=== PATIENT | female | born 1975 | race Caucasian/White ===

== ENCOUNTER 2018-05-24 10:53 | Emergency (ER) | payer OTHER ==
[2018-05-24 10:59] VITALS: BP 126/84
--- NOTE | 2018-05-24 11:06 | EDPHY ---
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 The dog is current on vaccinations including rabies. Patient is up-to-date on her tetanus. Patient reports that all a sudden she started to see blood drip from her face and she applied direct pressure. Denies LOC/head injury/neck pain/dizziness/nausea/vomiting/amnesia. Modifying Factors: Direct pressure Comment: ROS: A comprehensive 10 system review of systems is otherwise negative aside from elements mentioned in the history of present illness. MEDICAL/SURGICAL/SOCIAL HISTORY: Medical history: hemochromatosis. Does not take any regular medications. Surgical history: Denies Social history: Works at a veterinary office. Heavy smoker CONSTITUTIONAL: Well-developed, well-nourished adult white female, awake and alert, no obvious distress HEENT: normocephalic, left upper lip vertical laceration going through the vermilion border but not through and through; measuring approximately 1.5 cm x 0.5 cm; PERRL, EOMI. no globe entrapment, no raccoon eyes. no [place] signs.Tympanic membranes clear. No tympanic membrane rupture. Nares patent; no septal hematoma. Oropharynx clear, no exudate and moist pink mucosa. No malocclusion. no dental trauma. Airway patent. No lymphadenopathy. Cardiovascular: Normal S1/S2, regular rate, regular rhythm, without murmur rub or gallop. PULMONARY/CHEST: Symmetrical and nontender. Clear to auscultation bilaterally. Good air movement. No accessory muscle usage. ABDOMEN: Soft, nondistended, nontender, no rebound, no guarding, no peritoneal signs, no masses or organomegaly. No CVAT. EXTREMITIES: 2/2 pulses, strength 5/5, no deformities, no clubbing, no cyanosis or edema. NEUROLOGICAL: no focal neuro deficits. GCS 15. SKIN: Warm and dry, no erythema. no rash. Good capillary refill. Source: Patient Exam Limitations: No limitations - Personal History LMP (Females 10-55): 8-14 Days Ago Current Tetanus/Diphtheria Vaccine: Yes - Medical/Surgical History Hx Asthma: No Hx Chronic Respiratory Disease: No Hx Diabetes: No Hx Cardiac Disease: No Hx Renal Disease: No Hx Cirrhosis: No Hx Alcoholism: No Other PMH: hemachromatosis - Social History Smoking Status: Heavy smoker Constitutional: Initial Vital Signs Temperature (C) 36.8 C 05/24/18 10:56 Heart Rate 79 05/24/18 10:56 Respiratory Rate 18 05/24/18 10:56 Blood Pressure 126/84 H 05/24/18 10:56 O2 Sat (%) 98 05/24/18 10:56 O2 Delivery Mode Room Air Allergies/Adverse Reactions: No Known Allergies Allergy (Unverified 05/24/18 10:59) Home Medications: Medication Instructions Recorded Amoxicillin/Clavulanate Pot 875 mg PO BID #14 tab 05/24/18 [Augmentin 875 MG TAB (*)] oxyCODONE/APAP 5/325 [Percocet 1 - 2 tab PO Q4H PRN #10 tab 05/24/18 5/325 (*)] Medical Decision Making Procedures: Procedure: [place] border laceration Repair. Verbal consent was obtained from the patient. The 1.5 cm x 0.5 cm, complex, vertical laceration of the left upper lip, measured by the extent of the laceration on the skin was anesthetized in the usual fashion using 4 mL of 1% lidocaine without epinephrine. The wound extends past the peewee border. The wound was cleaned per protocol, draped and explored to its base with a gloved finger. The peewee border was closed with good approximation of the edges. The wound was loosely approximated with #2, 5-0 Vicryl simple interrupted pattern. The procedure was performed by myself. ED Course/Re-evaluation: Signs reviewed and stable upon arrival. Tetanus booster up-to-date Rabies prophylaxis not indicated Given ibuprofen Local anesthesia provided and copiously irrigated Due to vermilion border involvement decision made to place 2 loosely approximated absorbable sutures for better cosmesis Given Augmentin and prescription for same Patient is to return in 2-3 days for wound check and to determine if further suturing is indicated. Referral to Plastic surgery No signs of neurovascular compromise/tenting of skin/compartment syndrome/ extremities and joints examined above and below area of concern and are neurovascularly intact. This patient was seen under the supervision of my secondary supervising physician. I evaluated care for this patient attending. Differential Diagnosis: Differential diagnosis includes but is not limited to lip laceration, vermilion border injury, dental trauma, dog bite, puncture wound. - Data Points Medications Given: Discontinued Medications Amoxicillin/Clavulanate Potassium (Augmentin 875mg) 875 mg PO EDNOW ONE PRN Reason: Protocol Stop: 05/24/18 11:26 Last Admin: 05/24/18 11:49 Dose: 875 mg Ibuprofen (Motrin) 600 mg PO EDNOW ONE Stop: 05/24/18 11:16 Last Admin: 05/24/18 11:18 Dose: 600 mg Departure - Departure Disposition: Home, Routine, Self-Care Clinical Impression: Dog bite of vermilion of upper lip Qualifiers: Encounter type: initial encounter Qualified Code(s): S01.551A - Open bite of lip, initial encounter Condition: Good Instructions: Animal Bite (ED), Care For Your Absorbable Stitches (ED), Laceration Without Closure (ED), Facial Laceration (ED) Additional Instructions: Keep the area dry for 2-3 days. After 48 hours, you may wash the site daily with mild soap and water; then pat dry. Apply topical antibiotic ointment and keep covered with sterile dressing until fully healed. Do not soak in a bathtub or go swimming until sutures are removed. Take Tylenol 650 mg every 4 hours and/or Ibuprofen 600 mg every 8 hours with food as needed for pain. Use Percocet every 6 hours as needed for severe/break through pain. Do not use Tylenol and Percocet concomitantly. Take antibiotic as directed. Do not skip a dose. Follow-up with plastic surgery as indicated for scar revision/further evaluation. Wound Care Follow-Up: Wound evaluation and determine if further suturing is indicated [2-3 ] days. There is a charge for this evaluation in the Emergency Department. Referrals: Brian Martinez MD [Medical Doctor] - As per Instructions Prescriptions: Amoxicillin/Clavulanate Pot [Augmentin 875 MG TAB (*)] 875 mg PO BID #14 tab oxyCODONE/APAP 5/325 [Percocet 5/325 (*)] 1 - 2 tab PO Q4H PRN #10 tab PRN Reason: Pain, Severe
[2018-05-24] MEDS ORDERED: IBUPROFEN 600 MG TAB PO ONE (11:15)
[2018-05-24] MEDS ORDERED: AMOXICILLIN/CLAVULANATE POT 875/125 MG TAB PO ONE (11:25)
== END 2018-05-24 12:00 | disposition home or self-care (01) ==
PROC: 0CQ0XZZ Repair Upper Lip, External Approach (ICD-10-PCS; principal; 2018-05-24)
DX: S01.511A Laceration without foreign body of lip, initial encounter (principal); W54.0XXA Bitten by dog, initial encounter; Y99.0 Civilian activity done for income or pay

== ENCOUNTER 2018-05-27 09:37 | Emergency (ER) | payer OTHER ==
--- NOTE | 2018-05-27 09:52 | EDPHY ---
H & P Time Seen by Provider: 05/27/18 09:50 HPI/ROS: CHIEF COMPLAINT: Wound check HISTORY OF PRESENT ILLNESS: 42-year-old female seen the ER 3 days ago post dog bite to lip told to return to the ER for recheck. Started on Augmentin. She returns to the ER for wound check today. She notes that the more cephalad aspect of the wound has partially dehisced although the sutures in place and the caudal suture has opened although the low sutured is still in place. PHYSICAL EXAM (Prior to examination, patient consented to physical exam, hands were washed and my usual and customary physical exam procedures followed) 1) GENERAL: Well-developed, well-nourished, alert and oriented. Appears to be in no acute distress. 2) HEAD: Normocephalic 3) HEENT: sclera anicteric 4) LUNGS: Breathing comfortably. 5) SKIN: Attention focused on the patient's upper lip. Vermilion border is realign. There is partial dehiscence on the cephalad aspect of the wound. The caudal suture has opened up and is removed by myself. No dehiscence at this point. Smoking Status: Heavy smoker Constitutional: Initial Vital Signs Temperature (C) 37.2 C 05/27/18 09:39 Heart Rate 80 05/27/18 09:39 Respiratory Rate 16 05/27/18 09:39 Blood Pressure 114/73 05/27/18 09:39 O2 Sat (%) 97 05/27/18 09:39 O2 Delivery Mode Room Air Allergies/Adverse Reactions: No Known Allergies Allergy (Unverified 05/27/18 09:38) Home Medications: Medication Instructions Recorded Amoxicillin/Clavulanate Pot 875 mg PO BID #14 tab 05/24/18 [Augmentin 875 MG TAB (*)] oxyCODONE/APAP 5/325 [Percocet 1 - 2 tab PO Q4H PRN #10 tab 05/24/18 5/325 (*)] Ibuprofen 05/27/18 Tylenol 05/27/18 MDM/Departure - MDM ED Course/Re-evaluation: On the more cephalad aspect the patient's wound there is slight dehiscence which patient is concerned about given its cosmetic location. I think it is appropriate to have patient follow-up with Plastic surgery as she may necessitate a wound revision. She is given the name of Dr. Brian Martinez whom she was given at last emergency department visit. She feels comfortable with this plan. She shows no signs of infection to the wound. Continue Augmentin tool finished. Feels comfortable being discharged. Care of patient under supervision of secondary supervising physician Dr Walters . - Depart Disposition: Home, Routine, Self-Care Clinical Impression: Wound dehiscence Dog bite of skin of lip Qualifiers: Encounter type: subsequent encounter Qualified Code(s): S01.551D - Open bite of lip, subsequent encounter; W54.0XXD - Bitten by dog, subsequent encounter; W54.0XXD - Bitten by dog, subsequent encounter Condition: Good Instructions: Wound Dehiscence (ED) Referrals: Brian Martinez MD [Medical Doctor] - 1-2 days without fail
[2018-05-27 10:13] VITALS: BP 122/75
== END 2018-05-27 10:13 | disposition home or self-care (01) ==
DX: S01.551D Open bite of lip, subsequent encounter (principal)